=== PATIENT | male | born 1960 | race Caucasian/White ===

== ENCOUNTER 2019-07-03 16:00 | Outpatient (RCR) | payer OTHER, SELFPAY | END 2019-07-08 23:59 | LOC: NS 16:00 | PROVIDERS: PCP Family Medicine; Visit Provider Family Medicine | DX: Z71.3 Dietary counseling and surveillance (principal); E66.01 Morbid (severe) obesity due to excess calories | CPT/HCPCS: 97802; 97803 ==

== ENCOUNTER 2019-07-17 15:06 | Outpatient (RCR) | payer OTHER, SELFPAY ==
[2015-11-17 04:27] VITALS: BMI 51.7
== END 2019-08-08 23:59 ==
LOC: NS 15:06
PROVIDERS: PCP Family Medicine; Visit Provider Family Medicine
DX: Z71.3 Dietary counseling and surveillance (principal); E66.01 Morbid (severe) obesity due to excess calories
CPT/HCPCS: 97803

== ENCOUNTER 2019-08-14 14:50 | Outpatient (RCR) | payer OTHER, SELFPAY ==
[2015-11-17 04:27] VITALS: BMI 51.7
== END 2019-09-07 23:59 ==
LOC: NS 14:50
PROVIDERS: PCP Family Medicine; Visit Provider Family Medicine
DX: Z71.3 Dietary counseling and surveillance (principal); E66.01 Morbid (severe) obesity due to excess calories
CPT/HCPCS: 97803

== ENCOUNTER 2019-09-26 16:36 | Outpatient (RCR) | payer OTHER, SELFPAY ==
[2015-11-17 04:27] VITALS: BMI 51.7
== END 2019-10-08 23:59 ==
LOC: NS 16:36
PROVIDERS: PCP Family Medicine; Visit Provider Family Medicine
DX: Z71.3 Dietary counseling and surveillance (principal); E66.01 Morbid (severe) obesity due to excess calories
CPT/HCPCS: 97803

== ENCOUNTER 2019-10-17 14:28 | Outpatient (RCR) | payer OTHER, SELFPAY ==
[2015-11-17 04:27] VITALS: BMI 51.7
== END 2019-10-17 23:59 | disposition home or self-care (01) ==
LOC: NS 14:28
PROVIDERS: PCP Family Medicine; Visit Provider Family Medicine
DX: Z71.3 Dietary counseling and surveillance (principal); E66.01 Morbid (severe) obesity due to excess calories
CPT/HCPCS: 97803